=== PATIENT | male | born 1935 | race African-American/Black ===

== ENCOUNTER → 2018-09-20 | Outpatient (CLI) | payer MEDICARE, BC | END | disposition home or self-care (01) | LOC: RAD 08:33 | PROVIDERS: ATTEND Internal Medicine Clinical Cardiac Electrophysiology | DX: I44.30 Unspecified atrioventricular block (principal) | CPT/HCPCS: 71046 ==

== ENCOUNTER 2025-10-26 03:07 | Emergency (ER) | payer MEDICARE, BC ==
[~2025-10-26] VITALS: Ht 165.1 cm; Wt 70.0 kg
[2025-10-26 03:39] VITALS: O2SAT 98
[2025-10-26 04:38] VITALS: BP 125/73; PULSE 84; RESP 16; TEMP 36.6; O2SAT 97
== END 2025-10-26 04:44 | disposition home or self-care (01) ==
LOC: ER 03:07
DX: S91.012A Laceration without foreign body, left ankle, initial encounter (principal); I10 Essential (primary) hypertension; X58.XXXA Exposure to other specified factors, initial encounter; Y93.89 Activity, other specified; Y92.89 Other specified places as the place of occurrence of the external cause; Y99.8 Other external cause status
CPT/HCPCS: 99282